=== PATIENT | female | born 1980 | race Caucasian/White ===

== ENCOUNTER 2023-11-02 08:19 | Day surgery (SDC) | payer BC ==
[~2023-11-02] VITALS: Ht 154.9 cm; Wt 68.0 kg
[~2023-11-02 08:19] MED LIST: CEFAZOLIN SOD 2 GM in D5W 50 ML IV ONE
[2023-11-02 08:32] LABS: HCG,QUAL RESULT NEGATIVE (NEGATIVE)
[2023-11-02] MEDS ORDERED: LIDOCAINE 1%, 20 ML MDV 20 ML ONE (10:42)
[2023-11-02] MEDS ORDERED: SEVOFLURANE 15 MIN GAS INH ONE (11:44)
[2023-11-02] MEDS ORDERED: WATER FOR IRRIGATION,STERILE 1,000 ML IRRIG.SOLN IR ONE (11:44)
[2023-11-02] MEDS ORDERED: BUPIVACAINE /PF 0.25% 30 ML VIAL INJ ONE (11:44)
[2023-11-02] MEDS ORDERED: LR 1,000 ML IV.SOLN IV ONE (11:44)
[2023-11-02] MEDS ORDERED: MIDAZOLAM HCL/PF 2 MG/2 ML SYRINGE ONE (11:44)
[2023-11-02] MEDS ORDERED: DEXAMETHASONE SOD PHOSPHATE 4 MG/ML VIAL ONE (11:44)
[2023-11-02] MEDS ORDERED: PROPOFOL 200MG/ 20ML VIAL (DIPRIVAN) IV ONE (11:44)
[2023-11-02] MEDS ORDERED: NS IRRIG SOLN 1000 ML IR ONE (11:44)
[2023-11-02] MEDS ORDERED: fentaNYL CITRATE/PF 100 MCG/2 ML AMP ONE (11:44)
[2023-11-02] MEDS ORDERED: ONDANSETRON HCL 4 MG/2 ML VIAL IVP PRN (12:15)
[2023-11-02] MEDS ORDERED: KETOROLAC TROMETHAMINE 30 MG VIAL IVP PRN (12:15)
[2023-11-02] MEDS ORDERED: IBUPROFEN 600 MG TABLET PO ONE (12:15)
[2023-11-02] MEDS ORDERED: HYDROmorphone 1 MG/ML INJ. CARTRIDGE IVP PRN (12:15)
[2023-11-02] MEDS ORDERED: METOCLOPRAMIDE HCL 10 MG/2 ML VIAL IVP PRN (12:15)
[2023-11-02] MEDS ORDERED: HYDROcodone/ACETAMIN 5-325 MG TAB (NORCO/ VICODIN) PO PRN (12:45)
[2023-11-02] MEDS ORDERED: D5/0.45 NS 1,000 ML IV SCH (12:45)
[2023-11-02 14:02] VITALS: O2SAT 95
[2023-11-02 15:23] VITALS: BP_SYST 128; PULSE 84; RESP 18
== END 2023-11-02 14:42 | disposition home or self-care (01) ==
LOC: SDS 08:19 → SMU 08:20 → SDS 14:42
PROVIDERS: ATTEND Colon & Rectal Surgery
DX: D24.2 Benign neoplasm of left breast (principal); R92.8 Other abnormal and inconclusive findings on diagnostic imaging of breast; Z80.0 Family history of malignant neoplasm of digestive organs; Z79.899 Other long term (current) drug therapy
CPT/HCPCS: 87081; 19120; 84703; 76098; 19281; 88305; J3490; J0690; J1100; J3465; J2704; J3010; J7060; J7120; J2001